=== PATIENT | male | born 1985 | race Caucasian/White ===

== ENCOUNTER → 2018-11-19 | Outpatient (CLI) | payer OTHER ==
--- NOTE | 2018-11-19 09:54 | CT ---
EXAMINATION TYPE: CT pelvis w con DATE OF EXAM: 11/19/2018 COMPARISON: None. HISTORY: Right femoral hernia per order. Right groin swelling and hard lump 10-[address] DLP: 689.00 mGycm Automated exposure control for dose reduction was used. CONTRAST: CT pelvis performed with oral and with IV Contrast, patient injected with 100 ml mL of Isovue 300. FINDINGS: There are some prominent but subcentimeter bilateral groin lymph nodes seen superiorly slightly large r right groin versus left groin coronal image 12. There is however inferior to this abnormal soft tis micaela mass or probable enlarged lymph node measuring 2.4 x 2.4 cm axial image 60. There is mild surroun ding fat stranding at this level. There is adjacent smaller 1.8 x 1.1 cm medial mass or lymph node ax ial image 61. No definitive additional enlarged pelvic lymph nodes. There is suspicious borderline 2. 6 x 1.0 cm right external iliac chain lymph node axial image 39. There is prominent but subcentimeter 9 x 9 mm aortocaval lymph node axial image 10. Prostate gland and bladder are felt within normal limits. Oral contrast does not reach level of the t erminal ileum. There is no suspicious small or large bowel dilatation noted. There is no concerning p elvic fluid collection. Osseous structures are intact. IMPRESSION: ABNORMAL RIGHT GROIN SOLID MASS PROBABLE ADENOPATHY. FINDINGS COULD BE REACTIVE RELATED TO INFLAMMATO RY OR INFECTIOUS PROCESS HOWEVER NEOPLASM SUCH LYMPHOMA IS IN DIFFERENTIAL. STRICT CLINICAL CORREL ATION ADVISED. CONSIDER HEMATOLOGY ONCOLOGY REFERRAL. POSSIBLE OPTIONS INCLUDE IMAGING GUIDED SAMPLIN G AND/OR PET/CT BASED ON CLINICAL CORRELATION.
== END | disposition home or self-care (01) ==
LOC: RADCTMAIN 07:07
PROVIDERS: ATTEND Internal Medicine
DX: R19.09 Other intra-abdominal and pelvic swelling, mass and lump (principal)
CPT/HCPCS: 72193; Q9967

== ENCOUNTER 2018-11-29 09:00 | Day surgery (SDC) | payer OTHER ==
[2018-11-29 11:12] VITALS: TEMP 97.9
[2018-11-29] MEDS ORDERED: LACTATED RINGERS 1,000 ML IV ONE (11:35)
[2018-11-29] MEDS ORDERED: LIDOCAINE 1% 20 ML VIAL (10MG/ML) FOR IV START INTRADERMA ONE (11:35)
[2018-11-29] MEDS ORDERED: HEPARIN SODIUM,PORCINE 5,000 UNIT/ML 1 ML VIAL SQ ONE (11:36)
--- NOTE | 2018-11-29 12:53 | P.GSHP ---
History of Present Illness H&P Date: 11/29/18 Chief Complaint: Right thigh lymphadenopathy This is a 33-year-old male has developed right thigh lymphadenopathy just below the inguinal crease. He presents today for excisional biopsy Past Medical History Past Medical History: No Reported History History of Any Multi-Drug Resistant Organisms: None Reported Past Surgical History: No Surgical Hx Reported Past Psychological History: No Psychological Hx Reported Smoking Status: Former smoker Past Alcohol Use History: None Reported Past Drug Use History: Marijuana Medications and Allergies Home Medications Medication Instructions Recorded Confirmed Type Ibuprofen [Motrin] 400 mg PO Q8HR PRN 11/29/18 11/29/18 History Allergies Allergy/AdvReac Type Severity Reaction Status Date / Time No Known Allergies Allergy Verified 11/29/18 11:14 Surgical - Exam Vital Signs Temp Pulse Resp BP Pulse Ox 97.9 F 55 L 16 140/87 100 11/29/18 11:10 11/29/18 11:10 11/29/18 11:10 11/29/18 11:10 11/29/18 11:10 - General well developed, well nourished, no distress - Eyes PERRL - ENT normal pinna - Neck no masses - Respiratory normal expansion - Cardiovascular Rhythm: regular - Abdomen Abdomen: soft, non tender - Integumentary 5 cm lymphadenopathy right upper thigh on the medial aspect Assessment and Plan Assessment: Right thigh lymphadenopathy. Patient will undergo excisional biopsy.
[2018-11-29] MEDS ORDERED: MIDAZOLAM 2 MG/2 ML VIAL ONE (13:25)
[2018-11-29] MEDS ORDERED: KETAMINE 10 MG/ML 20 ML VIAL ONE (13:25)
[2018-11-29] MEDS ORDERED: LIDOCAINE 1% INJ 10MG/ML (20 ML MDV) ONE (13:25)
[2018-11-29] MEDS ORDERED: fentaNYL (PF) 50 MCG/ML 2 ML AMP ONE (13:25)
[2018-11-29] MEDS ORDERED: PROPOFOL 10 MG/ML 20 ML VIAL IV ONE (13:25)
[2018-11-29] MEDS ORDERED: SODIUM CHLORIDE 0.9% 50 ML with ceFAZolin 2,000 MG IV ONE ×2 (13:33)
--- NOTE | 2018-11-29 14:05 | P.OP ---
Date of Procedure: 11/29/18 Preoperative Diagnosis: Right thigh lymphadenopathy Postoperative Diagnosis: Right thigh lymphadenopathy Procedure(s) Performed: Excision of right thigh lymph node Anesthesia: ELISA Surgeon: Tin Conley Estimated Blood Loss (ml): 5 Pathology: other Condition: stable Disposition: PACU Description of Procedure: The patient's placed on the operating table in the supine position. He received general anesthesia. His thigh was prepped in the usual sterile fashion. The skin incision site was anesthetized 1% local Xylocaine. The skin was incised over the enlarged lymph node and then using blunt and sharp dissection with cautery the lymph node was dissected free. The specimen measured 5 x 2 x 3 cm. The area was cultured as well. There was no evidence of any purulent fluid. At this point a MERVIN drains placed into the wound and brought through separate stab incision skin was closed interrupted 3-0 Monocryl suture. Dermabond was applied. Patient top she will was sent to recovery in stable condition.
[2018-11-29 14:30] VITALS: RESP 18
[2018-11-29 14:47] VITALS: BP 103/66; PULSE 60
== END 2018-11-29 15:13 | disposition home or self-care (01) ==
LOC: OR 09:00
PROVIDERS: ATTEND Surgery
DX: R59.0 Localized enlarged lymph nodes (principal); Z87.891 Personal history of nicotine dependence; Z79.1 Long term (current) use of non-steroidal anti-inflammatories (NSAID); L02.415 Cutaneous abscess of right lower limb
CPT/HCPCS: 38500; 88312; 88307; 87070; 87205; 87075; J2250; J1644; J0690; J2001; J3010; J2704